=== PATIENT | male | born 1985 | race Caucasian/White ===

== ENCOUNTER → 2017-11-09 | Outpatient (CLI) | payer BC ==
[~2017-11-09] MED LIST: DIATRIZOATE MEGL/DIATRIZOA SOD 30 ML BTL PO ONE; IOPAMIDOL 370 MG/ML 200 ML INFUS..BTL INJ ONE; SODIUM CHLORIDE 0.9% 50ML 50 ML ONE
--- NOTE | 2017-11-09 10:27 | Diagnostic Imaging Report ---
PROCEDURE:CT ABDOMEN AND PELVIS WITH CONTRAST COMPARISON:None. INDICATIONS:Left lower quadrant pain TECHNIQUE: Routine protocol Volumetric CT abdomen and pelvis after administration of 100 mL Isovue-370 intravenous contrast and 900 mL positive enteric contrast. Multiplanar reformatted images. DLP: 881.67 FINDINGS: Clear lung bases. No pleural effusions. Normal heart size. Liver: Normal Gallbladder: Normal. No bile duct dilation. Pancreas: Normal Spleen: Normal. Several tiny adjacent splenules. Adrenal glands: Normal Kidneys: Normal Ureters and urinary bladder: Normal Prostate and seminal vesicles: Normal Bowel: Normal caliber. Normal appendix. Mildly redundant sigmoid colon of normal caliber. No evidence of diverticulosis. Peritoneum: Normal Vasculature: Normal caliber. Lymph nodes: Normal Skeleton: Normal Soft tissues: Normal CONCLUSION: No conspicuous etiology for left lower quadrant pain. Dictated by: Enzo Ashby M.D. on 11/09/2017 at 10:36 Electronically approved by: Enzo Ashby M.D. on 11/09/2017 at 10:36
== END ==
LOC: CT 08:50
PROVIDERS: ATTEND Surgery
DX: R19.04 Left lower quadrant abdominal swelling, mass and lump (principal)
CPT/HCPCS: 74177; Q9967